=== PATIENT | female | born 1945 | race Caucasian/White ===

== ENCOUNTER 2018-10-22 07:01 | Day surgery (SDC) | payer MEDICARE, OTHER, SELFPAY ==
[2018-10-22 07:17] VITALS: BP 108/69; PULSE 76; RESP 16; TEMP 35.3; O2SAT 94
[2018-10-22] MEDS: Lactated Ringers 1,000 ML 80 ML IV (07:52)
[2018-10-22] MEDS: CLINDAMYCIN 600 MG/50 ML BAG 100 MG IVPB (09:08)
[2018-10-22] MEDS: Lidocaine 1% Pres-Free 5 ML VIAL (09:09)
[2018-10-22] MEDS: Bupivacaine 0.5% Pres-Free 30 ML VIAL (09:09)
[2018-10-22] MEDS: Dexamethasone 4 MG/ML VIAL (09:41)
--- NOTE | 2018-10-22 09:52 | W.PM.DSUDISC ---
Discharge Plan Disposition Patient Disposition: HOME Condition: Good Discharge Details Attending Provider: Pavel Jennings Primary Care Provider: Ricardo Marley [place] Meds and New Rx's Prescriptions: Continued fluticasone propion-salmeterol [Advair Diskus] 250-50 mcg/dose Blister With Device 1 inh INHALATION BID RF: 0 carbidopa-levodopa 25-100 mg Tablet Extended Release 1 tab PO HS RF: 0 simvastatin 40 mg Tablet 40 mg PO HS RF: 0 pantoprazole 40 mg Tablet,Delayed Release (Dr/Ec) 40 mg PO DAILY RF: 0 albuterol sulfate [Ventolin HFA] 90 mcg/actuation Hfa Aerosol Inhaler 2 puff INHALATION PRN PRNRF: 0 carbidopa-levodopa 25-100 mg Tablet 1 tab PO TID RF: 0 Artificial Tears (PF) Dropperette 1 drp OPHTHALMIC (EYE) 4-6XD PRNRF: 0 levothyroxine 50 mcg Capsule 50 mcg PO DAILY RF: 0 Discharge Instructions Activity:: Elevate Remove Dressings/Wound Care:: Do Not Remove Shower/Bathe:: Cover Diet:: Normal Diet Discharge Orders Discharge Orders: Discharge Order (Routine); Ordered 10/22/18 Ordered By: Pavel Jennings DS: Diagnosis Discharge Diagnosis (1) Hallux rigidus of left foot: Status: Acute
[2018-10-22 10:35] VITALS: BP 104/73; PULSE 62; RESP 16; TEMP 35.3; O2SAT 96
--- NOTE | 2018-10-22 12:18 | ROE_ITS ---
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 POSTOPERATIVE DIAGNOSIS: Same. PROCEDURE: Mckeon bunionectomy with 0.062 K-Wire fixation. SURGEON: Bonnie SteinPBhupinder. ANESTHESIA: IV General with local block first ray utilizing 10 cc's 50:50 mixture 1% Lidocaine plain , 0.5% Marcaine plain. OPERATIVE INDICATIONS: 73-year-old female with chronic pain associated with degenerative arthritis o f the first MPJ of the left foot, interfering with shoe gear, daily activity and ambulation. Non-addy gical treatments have failed to provide lasting relief of symptoms. She understands risks and compli cations of surgery pertaining to pain, scarring, infection, shortening of the toe, floating of the gr eat toe, persistent discomfort. Informed consent has been obtained. No promises made to the final o utcome of surgery. REPORT OF OPERATION: Angelique is brought to the operative suite, placed in the supine position, where the left foot is prepped and draped in the usual sterile podiatric fashion. Anesthesia being obtaine d, the left foot was exsanguinated; a well-padded ankle tourniquet inflated 250 mmHg. Attention was directed to the first MPJ where a 4 cm incision was placed medial parallel to the EHL t endon, centered at the MPJ. The incision was deepened in controlled depth fashion; hemostasis acquir ed with electrocautery as needed. Dissection was carried down to the joint capsule. The capsule was incised dorsal centrally and retracted medially laterally. The articular surface and surrounding magy ne were severely degenerated with extensive periarticular exostoses noted. The articular surface was completely denuded from both sides of the joint. With power instrumentation, 1 cm of bone from the base of the proximal phalanx was resected. The medial lateral and dorsal portion of the first metata rsal head was resected. All rough and bony edges were then rasped smooth. Copious irrigation was pe rformed. Excellent relaxation of the great toe was appreciated. The hallux was stabilized in retrog rade fashion with a 0.062 K-Wire. Once again irrigation was performed. The joint capsule was repair ed with simple interrupted suture #3-0 Vicryl, purse-stringing the joint capsule into the first inter metatarsal space. Subcutaneous layer was then coapted with #4-0 Vicryl, and the skin was closed with continuous running suture #4-0 Monocryl. Half-inch Steri-Strips were applied over Mastisol. Four m illigrams of Dexamethasone Phosphate was infused deeply into the wound. Xeroform, gauze fluff compre ssion dressings were applied. The tourniquet was released at approximately twenty-six minutes with v ascularity returning immediately to all toes. The patient left the OR with vital signs stable, vascu lar status intact; sharp and sponge counts were correct. She will be followed by me in the office ne xt week. cc: Ricardo Marley D.O.
== END 2018-10-22 10:45 | disposition home or self-care (01) ==
PROVIDERS: PCP Neuromusculoskeletal Medicine & OMM; Visit Provider Podiatrist
PROC: (CPT 28292; principal; 2018-10-22 09:00)
DX: M20.22 Hallux rigidus, left foot (principal); M19.072 Primary osteoarthritis, left ankle and foot; J44.9 Chronic obstructive pulmonary disease, unspecified; K21.9 Gastro-esophageal reflux disease without esophagitis; Z87.891 Personal history of nicotine dependence
CPT/HCPCS: 28292; J1100

== ENCOUNTER → 2023-08-03 14:17 | Outpatient (BNVA) | payer MEDICARE, OTHER, SELFPAY | PROVIDERS: PCP Neuromusculoskeletal Medicine & OMM; Referring Provider Neuromusculoskeletal Medicine & OMM; Visit Provider Student in an Organized Health Care Education/Training Program | DX: J44.9 Chronic obstructive pulmonary disease, unspecified (principal); C34.12 Malignant neoplasm of upper lobe, left bronchus or lung; R91.1 Solitary pulmonary nodule; Z90.2 Acquired absence of lung [part of] | CPT/HCPCS: 99213 ==

== ENCOUNTER 2025-02-02 09:58 | Outpatient (CLI) | payer MEDICARE, OTHER, SELFPAY ==
--- NOTE | 2025-02-02 09:30 | DI.RAD_ITS ---
Exam(s) XR ARTHRITIS SERIES EXAM: XR ARTHRITIS SERIES CLINICAL HISTORY: b/l hand pain. TECHNIQUE: 2D digital imaging was performed. Two images were obtained. COMPARISON: No exams were available for comparison FINDINGS: BONES: No acute fracture is present. No bony destructive lesion is seen. JOINTS: The metacarpophalangeal joints are well maintained. There are mild degenerative changes seen at the 1st CMC joints bilaterally, left greater than right. At the interphalangeal joints of the hand there is narrowing of the joint space and osteophytes present. Central erosions are seen particularly at the DIP joints. The findings are most suggestive of erosive osteoarthritis. SOFT TISSUE: Normal. 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 DATA REPOSITORY: RADIATION DOSE DELIVERED:
== END 2025-02-02 09:59 | disposition home or self-care (01) ==
LOC: DIORS 09:58
PROVIDERS: PCP Neuromusculoskeletal Medicine & OMM; Referring Provider Neuromusculoskeletal Medicine & OMM; Visit Provider Student in an Organized Health Care Education/Training Program
DX: M79.641 Pain in right hand (principal); M79.642 Pain in left hand; M65.352 Trigger finger, left little finger; M19.041 Primary osteoarthritis, right hand; M19.042 Primary osteoarthritis, left hand
CPT/HCPCS: 99213; 20600; J1010; 73120